=== PATIENT | male | born 1930 | race Caucasian/White ===

== ENCOUNTER 2016-05-25 06:37 | Observation (INO) | payer OTHER ==
[~2016-05-25] VITALS: Ht 167.6 cm; Wt 82.1 kg
[2016-05-25] VITALS (15 sets, daily range): BP systolic 119–153; BP diastolic 57–71
--- NOTE | ~2016-05-25 | EKG ---
[address] [address] ELECTROCARDIOGRAM REPORT Name: LAZARO GUTHRIE Room #: 209-[facility]..#: [id number] Admission: 05/25/16 Attend Phys: Mark Kaur MD Discharge: Date of : 30 Report #: [id number] THIS REPORT FOR: //name// [facility] Test Date: 2016-05-25 Test Time: 12:50:59 Pat Name: LAZARO GUTHRIE Department: Room: 209 P Gender: M Binding Cutter: khoa : 1930 Requested By: Mark Kaur Order Number: [id number] MD: Jas Schulte Measurements Intervals [place] Rate: 60 P: 36 [place]: 172 QRS: -40 QRSD: 85 T: 59 QT: 447 QTc: 447 Interpretive Statements Sinus rhythm Inferior infarct, old Anterior infarct, old Compared to ECG 05/25/2016 08:04:07 No significant changes Electronically Signed On 05-26-2016 8:16:32 CDT by Jas Schulte [email or web address] <ELECTRONICALLY SIGNED> By: Jas Schulte MD, [facility] 05/26/16 0816 1250 1250 Jas Schulte MD, FACC /EPI
--- NOTE | ~2016-05-25 | EKG ---
[address] [address] [place] [address] ELECTROCARDIOGRAM REPORT Name: LAZARO GUTHRIE Room #: REG CLI [facility]#: [id number] Admission: 05/25/16 Attend Phys: Mark Kaur MD Discharge: Date of : 30 Report #: [id number] THIS REPORT FOR: //name// [facility] Test Date: 2016-05-25 Test Time: 08:04:07 Pat Name: LAZARO GUTHRIE Department: Room: Gender: Line Haul Owner Operator: [email or web address] : 1930 Requested By: Mark Kaur Order Number: [id number] MD: Jas Schulte Measurements Intervals [place] Rate: 64 P: 18 [place]: 187 QRS: -26 QRSD: 87 T: 67 QT: 439 QTc: 453 Interpretive Statements Sinus rhythm Inferior infarct, old Anteroseptal infarct, old Baseline wander in lead(s) V6 No previous ECG available for comparison Electronically Signed On 05-25-2016 9:06:33 CDT by Jas Schulte [email or web address] <ELECTRONICALLY SIGNED> By: Jas Schulte MD, [facility] 05/25/16 0906 D: 04/803 3 Jas Schulte MD, FACC /EPI
--- NOTE | ~2016-05-25 | CATHLAB ---
[address] [address] [facility] [place] [address] INVASIVE PROCEDURE REPORT Name: CLEVELANDLAZARO Bri Room #: 209-P [facility] IN M.R.#: [id number] Admission: 05/25/16 Attend Phys: Mark Kaur MD Discharge: Date of : 30 Date of Service: 05/25/16 1013 Report #: [id number] THIS REPORT FOR: //name// CC: Stacy Kaur DATE OF SERVICE: 05/25/2016 CARDIAC CATHETERIZATION INDICATIONS: Anginal equivalent. Full risks, benefits and alternatives of cardiac catheterization were explained to the patient. All questions were answered. Informed consent was obtained. A Barbeau test was performed on the right radial artery. The right wrist area was prepped and draped in a sterile manner. Lidocaine was given subcutaneously. A 6-Portuguese sheath was inserted into the right radial artery via modified Seldinger technique. Nitroglycerin and verapamil was injected through the sheath. 5000 units of heparin was introduced through a peripheral IV. CORONARY ANATOMY: The left main artery has no flow limiting lesions. There is a stent in the proximal LAD, patent with mild restenosis, 20%. The mid LAD has mild to moderate diffuse disease, 30-40%. The left circumflex artery is a codominant vessel, supplying three obtuse marginal arteries. In the proximal segment of the left circumflex artery, there is a severe, occlusion of 80%. The RCA supplies a PDA. There is a stent in the proximal RCA, patent with minimal restenosis. There is mild diffuse disease in the distal RCA, 20%. The LVEDP is approximately 16 mmHg. A left ventriculogram was not performed in view of a mildly elevated creatinine level, in addition with a angioplasty. There is no gradient across the outflow tract. ANGIOPLASTY REPORT: A 6-Portuguese guide was used. An ACT was checked and the patient was given additional heparin. I placed a Luge wire into the distal circumflex. The proximal lesion was predilated with a 2.5 mm Trek balloon. I elected to place a 2.75 x 12 mm Resolute (drug-eluting stent), inflated up to 14 atmospheres. The balloon was withdrawn slightly and again inflated up to 14 atmospheres. Final injections revealed LENIN 3 blood flow with a 10% residual stenosis at the lesion site. At the end of the procedure, a Vasc band was applied for hemostasis. [address] [address] INVASIVE PROCEDURE REPORT Name: LAZARO GUTHRIE Bri Room #: 209-P [facility]#: [id number] Admission: 05/25/16 Attend Phys: Mark Kaur MD Discharge: Date of : 30 Date of Service: 05/25/16 1013 Report #: [id number] IMPRESSION: 1. Successful insertion of a drug-eluting stent into the proximal left circumflex artery. 2. Patent stents in the proximal LAD and proximal RCA with mild restenosis. 3. Recommend dual antiplatelet therapy. <ELECTRONICALLY SIGNED> By: Mark Kaur MD 05/26/16 0835 1013 1108 Mark Kaur MD /nt
--- NOTE | ~2016-05-25 | D ---
[facility] [place] [address] DISCHARGE SUMMARY Name: LAZARO GUTHRIE Room #: 209-P [facility] Benjamin Larry#: [id number] Admission: 05/25/16 Attend Phys: Mark Kaur MD Discharge: 05/26/16 Date of : 30 Report #: [id number] THIS REPORT FOR: //name// CC: Stacy Kaur FINAL DIAGNOSES: 1. Coronary artery disease, status post percutaneous coronary intervention. 2. Previous history of LA. 3. Hypertension. 4. Hypercholesterolemia. 5. Chronic renal insufficiency. HOSPITAL COURSE: Please see the original H and P for full details. The patient presented with dyspnea and fatigue with exertion. Please see the cardiac catheterization report for full details. The previously placed stents in the proximal LAD and proximal RCA are patent with mild restenosis. The left circumflex artery is a codominant vessel with a severe, focal occlusion in the proximal segment. Coronary intervention was performed with placement of a drug-eluting stent. He has remained stable overnight and will be discharged home. FINAL DISPOSITION: Aspirin 81 mg daily, Brilinta 90 mg twice a day, losartan 25 mg, Toprol-XL 25 mg daily, Lipitor 40 mg daily, amlodipine 10 mg daily and Imdur 30 mg. He is given instructions for followup in the office in several weeks. <ELECTRONICALLY SIGNED> By: Mark Kaur MD 05/29/16 0801 0908 1418 MD jose Sparrow
--- NOTE | ~2016-05-25 | EKG ---
[address] [address] ELECTROCARDIOGRAM REPORT Name: LAZARO GUTHRIE Room #: 209-[facility].R.#: [id number] Admission: 05/25/16 Attend Phys: Mark Kaur MD Discharge: Date of : 30 Report #: [id number] THIS REPORT FOR: //name// [facility] Test Date: 2016-05-26 Test Time: 06:29:30 Pat Name: LAZARO GUTHRIE Department: Room: 209 P Gender: M Vaccine Specialist: ajith hernandez : 1930 Requested By: Mark Kaur Order Number: [id number] MD: Jas Schulte Measurements Intervals [place] Rate: 79 P: 15 [place]: 174 QRS: -42 QRSD: 81 T: 55 QT: 405 QTc: 465 Interpretive Statements Sinus rhythm Inferior infarct, old Anteroseptal infarct, old Baseline wander in lead(s) V4 Compared to ECG 05/25/2016 08:04:07 No significant changes Electronically Signed On 05-26-2016 8:26:14 CDT by Jas Schulte [email or web address] <ELECTRONICALLY SIGNED> By: Jas Schulte MD, [facility] 05/26/16825 8 8 Jas Schulte MD, [facility] /EPI
[~2016-05-25 06:37] MED LIST: ASPIRIN325 PO; ATORVASTATIN CA40 MG PO; COZAAR 25 MG TA25 M1 PO; HIGH BP; HYDROCHLOROTH12.5 M1 PO; LIPITOR10 MG PO; NITROGLYCERIN0.4 MG SUBLING; NORVASC5 MG PO; PEPCID20 MG PO; PLAVIX 75 MG TA75 M1 PO; TOPROL XL25 MG PO; VITAMIN D2000 UNIT PO
[2016-05-25 07:34] LABS: HEMATOCRIT 34.1 % (42.0-52.0); HEMOGLOBIN 10.9 gm/dL (14.0-18.0); MCHC 31.9 g/dL (28.0-37.0); MCV 59.6 fL (80.0-100.0); RBC 5.73 mil/uL (4.50-6.00); RDW 16.3 % (10.5-14.5); WBC 9.3 thou/uL (4.0-11.0)
[2016-05-25] MEDS ORDERED: NORVASC10 MG PO (07:43)
[2016-05-25 07:48] LABS: CALCIUM 8.6 mg/dL (8.5-10.1); CREATININE 1.4 mg/dL (0.7-1.3); POTASSIUM 4.1 mmol/L (3.5-5.1)
[2016-05-25] MEDS ORDERED: IMDUR 30 MG TAB30 M1 PO (21:45)
[2016-05-25] MEDS ORDERED: ASPIRIN325 PO (21:46)
[2016-05-26 00:12] VITALS: BP 138/65
[2016-05-26 03:40] LABS: HEMATOCRIT 32.3 % (42.0-52.0); HEMOGLOBIN 10.4 gm/dL (14.0-18.0); MCH 19.1 pg (26.0-34.0); MCHC 32.1 g/dL (28.0-37.0); MCV 59.7 fL (80.0-100.0); RBC 5.42 mil/uL (4.50-6.00); RDW 16.5 % (10.5-14.5); WBC 7.2 thou/uL (4.0-11.0)
[2016-05-26 04:02] LABS: ANION GAP 12 mmol/L (7-16); BUN 20 mg/dL (7-18); CALCIUM 8.5 mg/dL (8.5-10.1); CHLORIDE 106 mmol/L (98-107); CO2 21 mmol/L (21-32); CREATININE 1.2 mg/dL (0.7-1.3); GLUCOSE 106 mg/dL (74-106); POTASSIUM 4.1 mmol/L (3.5-5.1); SODIUM 139 mmol/L (136-145); TROPONIN-I < 0.04 ng/mL (<0.04-0.07)
[2016-05-26 04:19] VITALS: BP 158/75
[2016-05-26] MEDS ORDERED: BRILINTA90 MG PO (08:59)
[2016-05-26] MEDS ORDERED: ASPIR 8181 MG PO (09:01)
[2016-05-26 10:26] VITALS: BP 158/75
== END 2016-05-26 11:11 | disposition home or self-care (01) ==
LOC: CATH 06:37 → 2N 10:14 → CATH 13:11 → 2N 05-26 11:11
PROVIDERS: Internal Medicine Cardiovascular Disease
DX: I25.10 Atherosclerotic heart disease of native coronary artery without angina pectoris (principal); I25.2 Old myocardial infarction; I12.9 Hypertensive chronic kidney disease with stage 1 through stage 4 chronic kidney disease, or unspecified chronic kidney disease; N18.9 Chronic kidney disease, unspecified; E78.5 Hyperlipidemia, unspecified

== ENCOUNTER → 2017-06-28 | Outpatient (CLI) | payer OTHER ==
[~2017-06-28] MED LIST changes: +ASPIR 8181 MG PO; +BRILINTA90 MG PO; +IMDUR 30 MG TAB30 M1 PO; +NORVASC10 MG PO
--- NOTE | ~2017-06-28 | 2DMMODE ---
[facility] [address] [place] [address] 2 D/M-MODE ECHOCARDIOGRAM Name: LAZARO GUTHRIE Room #: REG CL [facility]#: [id number] Admission: 06/28/17 Attend Phys: Mark Kaur MD Discharge: Date of : 30 Date of Service: 06/28/17 1446 Report #: [id number] THIS REPORT FOR: //name// APPROVED REPORT Study performed: 06/28/2017 14:04:18 EXAM: Comprehensive 2D, Doppler, and color-flow Echocardiogram Patient Location: Echo lab Status: routine BSA: 1.86 HR: 60 bpm BP: 117/59 mmHg Other Information Study Quality: Adequate Indications CAD 2D Dimensions RVDd: 31.14 mm LVEF(%): 71.29 (>50%) IVSd: 13.57 (7-11mm) LVOT Diam: 20.64 (18-24mm) LVDd: 40.08 mm PWd: 14.26 (7-11mm) Ascending Ao: 30.85 (22-36mm) LVDs: 24.01 (25-40mm) Aortic Root: 34.30 mm IVC: 13.00 mm Sheffield's LVEF: 71.29 % Volumes Left Atrial Volume (Systole) Single Plane 4CH: 37.11 mL Single Plane 2CH: 38.40 mL LA ESV Index: 23.00 mL/m2 Aortic Valve AoV Peak Quoc.: 1.76 m/s AO Peak Gr.: 12.44 mmHg LVOT Max P.74 mmHg LVOT Max V: 0.97 m/s DERICK Vmax: 1.83 cm2 Mitral Valve E/A Ratio: 0.8 MV Decel. Time: 211.34 ms MV E Max Quoc.: 0.80 m/s [facility] [place] [address] 2 D/M-MODE ECHOCARDIOGRAM Name: LAZARO GUTHRIE Room #: REG [facility]#: [id number] Admission: 06/28/17 Attend Phys: Mark Kaur MD Discharge: Date of : 30 Date of Service: 06/28/17 1446 Report #: [id number] MV A Quoc.: 1.03 m/s MV PHT: 61.29 ms IVRT: 93.43 ms Pulmonary Valve PV Peak Quoc.: 0.85 m/s PV Peak Gr.: 2.88 mmHg Pulmonary Vein P Vein S: 0.73 m/s P Vein A: 0.33 m/s P Vein D: 0.46 m/s P Vein A Dur.: 141.9 msec P Vein S/D Ratio: 1.59 Tricuspid Valve TR Peak Quoc.: 2.37 m/s RAP Estimate: 5.00 mmHg TR Peak Gr.: 22.48 mmHg PA Pressure: 27.00 mmHg Left Ventricle The left ventricle is normal size. Mild concentric left ventricular hypertrophy. The left ventricular systolic function is normal. The left ventricular ejection fraction is within the normal range. LVEF is 55-60%. Mild diastolic dysfunction is present (impaired relaxation pattern). Right Ventricle The right ventricle is normal size. The right ventricular systolic function is normal. Atria The left atrium size is normal. The right atrium size is normal. Aortic Valve Aortic valve is calcified. Trace aortic regurgitation. There is no aortic valvular stenosis. Mitral Valve Mild mitral annular calcification. Trace mitral regurgitation. No evidence of mitral valve stenosis. Tricuspid Valve The tricuspid valve is normal in structure. Trace to mild tricuspid regurgitation. PAP is estimated at 27 mmHg. Pulmonic Valve The pulmonary valve is normal in structure. Trace pulmonic [address] [address] 2 D/M-MODE ECHOCARDIOGRAM Name: LAZARO GUTHRIE Room #: REG CL [facility]#: [id number] Admission: 06/28/17 Attend Phys: Mark Kaur MD Discharge: Date of : 30 Date of Service: 06/28/17 1446 Report #: [id number] regurgitation. Great Vessels The aortic root is normal in size. IVC is normal in size and collapses >50% with inspiration. Pericardium There is no pericardial effusion. <Conclusion> The left ventricle is normal size. Mild concentric left ventricular hypertrophy. The left ventricular systolic function is normal. Mild diastolic dysfunction is present (impaired relaxation pattern). The right ventricle is normal size. The left atrium size is normal. Aortic valve is calcified. Trace aortic regurgitation. Mild mitral annular calcification. Trace mitral regurgitation. Trace to mild tricuspid regurgitation. PAP is estimated at 27 mmHg. <ELECTRONICALLY SIGNED> By: Mark Kaur MD 06/28/17 1446 1446 1446 Mark Kuar MD /INF
== END ==
LOC: CV 13:42
DX: I25.10 Atherosclerotic heart disease of native coronary artery without angina pectoris (principal); I51.7 Cardiomegaly; I70.0 Atherosclerosis of aorta; I70.8 Atherosclerosis of other arteries

== ENCOUNTER → 2018-01-03 | Outpatient (CLI) | payer OTHER | LOC: NUC 07:01 | DX: I25.10 Atherosclerotic heart disease of native coronary artery without angina pectoris (principal) ==

== ENCOUNTER 2018-11-05 18:33 | Emergency (ER) | payer OTHER ==
[~2018-11-05] VITALS: Ht 170.2 cm; Wt 76.2 kg
[2018-11-05 18:36] VITALS: BP 150/67
[2018-11-06] MEDS ORDERED: KEFLEX500 M1 PO (14:39)
== END 2018-11-05 19:58 | disposition home or self-care (01) ==
LOC: ER 18:33
DX: S63.633A Sprain of interphalangeal joint of left middle finger, initial encounter (principal); M19.90 Unspecified osteoarthritis, unspecified site; I10 Essential (primary) hypertension; E78.00 Pure hypercholesterolemia, unspecified; Z90.49 Acquired absence of other specified parts of digestive tract; X58.XXXA Exposure to other specified factors, initial encounter; Y93.53 Activity, golf; Y92.89 Other specified places as the place of occurrence of the external cause; Y99.8 Other external cause status

== ENCOUNTER 2018-11-06 13:08 | Emergency (ER) | payer OTHER ==
[~2018-11-06] VITALS: Ht 170.2 cm; Wt 74.8 kg
[2018-11-06 13:59] LABS: HEMATOCRIT 36.5 % (42.0-52.0); HEMOGLOBIN 11.5 gm/dL (14.0-18.0); MCH 19.2 pg (26.0-34.0); MCHC 31.5 g/dL (28.0-37.0); RBC 5.99 mil/uL (4.50-6.00); RDW 16.4 % (10.5-14.5); WBC 7.2 thou/uL (4.0-11.0)
[2018-11-06 14:08] LABS: CALCIUM 8.7 mg/dL (8.5-10.1); CREATININE 1.5 mg/dL (0.7-1.3)
[2018-11-06] MEDS ORDERED: KEFLEX500 M1 PO (14:39)
[2018-11-06 14:59] VITALS: BP 134/52
== END 2018-11-06 14:59 | disposition home or self-care (01) ==
LOC: ER 13:08
PROVIDERS: Physician Assistant
DX: M79.645 Pain in left finger(s) (principal); M79.89 Other specified soft tissue disorders; I10 Essential (primary) hypertension; E78.00 Pure hypercholesterolemia, unspecified; I25.2 Old myocardial infarction; Z98.41 Cataract extraction status, right eye; Z98.42 Cataract extraction status, left eye; Z98.890 Other specified postprocedural states; Z90.49 Acquired absence of other specified parts of digestive tract

== ENCOUNTER → 2019-06-26 | Outpatient (CLI) | payer OTHER ==
[~2019-06-26] MED LIST changes: +KEFLEX500 M1 PO
== END ==
LOC: SJCVCIMAG 08:50
DX: R94.31 Abnormal electrocardiogram [ECG] [EKG] (principal); I08.2 Rheumatic disorders of both aortic and tricuspid valves; I25.10 Atherosclerotic heart disease of native coronary artery without angina pectoris; I10 Essential (primary) hypertension; E78.00 Pure hypercholesterolemia, unspecified; I25.2 Old myocardial infarction; Z79.899 Other long term (current) drug therapy; Z87.891 Personal history of nicotine dependence